=== PATIENT | male | born 1960 | race Two or more races ===

== ENCOUNTER 2021-12-19 11:19 | Inpatient (IN) | payer MEDICAID, OTHER ==
[~2021-12-19] VITALS: Ht 182.9 cm; Wt 86.6 kg
[2021-12-19] MEDS ORDERED: cefTRIAXone 1GM/50ML D5W 50 ML IV ONE (13:00)
[2021-12-19] MEDS ORDERED: SODIUM CHLORIDE 0.9% 1,000 ML IV ONE ×2 (13:00)
[2021-12-19 14:09] LABS: Basophils # (auto) 0.1 10 ^3/uL (0-0.2); Basophils % (auto) 0.2 % (0.0-2.0); Eosinophils # (auto) 0 10 ^3/uL (0-0.8); Hematocrit 43.7 % (41.0-53.0); Hemoglobin 14.1 g/dL (13.5-17.5); Lymphocytes % (auto) 3.8 % (10.0-50.0); Mean Corpuscular Hemoglobin 31.6 pg (28.0-32.0); Mean Corpuscular Hgb Conc. 32.2 g/dL (32.0-36.0); Mean Corpuscular Volume 98.1 fL (80.0-100.0); Monocytes # (auto) 1.4 10 ^3/uL (0-1.3); Monocytes % (auto) 5.4 % (0.0-12.0); Neutrophils # (auto) 24.2 10 ^3/uL (1.6-8.6); Neutrophils % (auto) 90.6 % (37.0-80.0); Nucleated Red Blood Cells % 0.1 %; Red Blood Cells 4.45 10^6/uL (4.5-5.90); White Blood Cell 26.8 10^3/uL (4.4-10.8)
[2021-12-19 14:31] LABS: Albumin 3.1 g/dL (3.4-5.0); Calcium 9.5 mg/dL (8.5-10.1)
[2021-12-19 14:32] LABS: Lactic Acid w/Reflex 2.2 mmol/L (0.4-2.0)
[2021-12-19 14:34] LABS: Bilirubin, Total 0.6 mg/dL (0.2-1.0); Total Protein 6.8 g/dL (6.4-8.2)
[2021-12-19 14:39] LABS: Partial Thromboplastin Time 25.4 sec (24.6-33.4)
[2021-12-19 15:00] LABS: BUN/Creatinine Ratio 8.1
[2021-12-19 15:02] LABS: Potassium 5.9 mmol/L (3.5-5.1)
[2021-12-19] MEDS ORDERED: SODIUM ZIRCONIUM CYCL 10 GM PAK PO ONE (15:15)
[2021-12-19] MEDS ORDERED: SODIUM BICARBONATE 8.4% INJ 50ML SYRINGE IV ONE (15:15)
[2021-12-19] MEDS ORDERED: DEXTROSE (50%) 50ML SYRG IV ONE (15:15)
[2021-12-19] MEDS ORDERED: CALCIUM GLUC 1,000mg/50ml-NS 50 ML IV ONE (15:15)
[2021-12-19] MEDS ORDERED: ALBUTEROL SULF 2.5 MG/0.5ML(0.5%) NEB SOLN NEB ONE (15:15)
[2021-12-19] MEDS ORDERED: FUROSEMIDE 20 MG/2 ML VIAL IV ONE (15:15)
[2021-12-19] MEDS ORDERED: InsuLIN REG 1unit/0.01ml Soln (100units/ml) IV ONE (15:15)
[2021-12-19] MEDS ORDERED: MORPHINE SULFATE INJ 2 MG/ml SYRG IV PRN (17:00)
[2021-12-19] MEDS ORDERED: NITROGLYCERIN 0.4 MG SL TAB SL PRN (17:00)
[2021-12-19] MEDS ORDERED: HEPARIN 1,000 UNITS/ml 1ML VIAL IV ONE (17:30)
[2021-12-19] MEDS ORDERED: SODIUM BICARBONATE 50ML VIAL 50 ML in SOD CHL 0.45% 1,000 ML IV SCH ×2 (17:30→17:45)
[2021-12-19 20:22] LABS: Potassium 5.1 mmol/L (3.5-5.1)
[2021-12-19 20:30] LABS: BUN/Creatinine Ratio 9.3
[2021-12-19 20:45] LABS: Cholesterol 109 mg/dL (< 200)
[2021-12-19 20:47] LABS: HDL Cholesterol 17 mg/dL (40-59); LDL Cholesterol 65 mg/dL (< 100); Triglycerides 275 mg/dL (< 150)
[2021-12-19] MEDS ORDERED: CATHFLO ACTIVASE (ALTEPLASE) 2 MG VIAL IV ONE (21:30)
[2021-12-19] MEDS ORDERED: CATHFLO ACTIVASE (ALTEPLASE) 2 MG VIAL ONE (21:35)
[2021-12-19] MEDS ORDERED: SODIUM CHLORIDE LOCK 20 ML ONE (21:50)
[2021-12-19] MEDS ORDERED: SODIUM CHLOR 0.9% PF (SALINE LOCK) 10ML VIAL/SYR IV ONE (22:00)
[2021-12-20 01:31] LABS: Anion Gap 20 (5-15); Carbon Dioxide 14 mmol/L (21-32); Chloride 118 mmol/L (98-107); Glucose 94 mg/dL (74-106); Potassium 5.2 mmol/L (3.5-5.1); Sodium 152 mmol/L (136-145)
[2021-12-20 02:07] LABS: BUN/Creatinine Ratio 8.8; GFR African American 3 mL/min; GFR Non-African American 2 mL/min
[2021-12-20 02:08] LABS: Blood Urea Nitrogen 189 mg/dL (7-18)
[2021-12-20 05:58] LABS: Basophils # (auto) 0 10 ^3/uL (0-0.2); Basophils % (auto) 0.2 % (0.0-2.0); Eosinophils # (auto) 0 10 ^3/uL (0-0.8); Hemoglobin 14.5 g/dL (13.5-17.5); Lymphocytes # (auto) 1.9 10 ^3/uL (0.4-5.4); Lymphocytes % (auto) 7.8 % (10.0-50.0); Monocytes # (auto) 1.3 10 ^3/uL (0-1.3); Monocytes % (auto) 5.4 % (0.0-12.0); Neutrophils # (auto) 21.2 10 ^3/uL (1.6-8.6); Neutrophils % (auto) 86.6 % (37.0-80.0); Nucleated Red Blood Cells % 0.2 %; Red Blood Cells 4.54 10^6/uL (4.5-5.90); Red Cell Distribution Width 15.6 % (11.8-14.3); White Blood Cell 24.4 10^3/uL (4.4-10.8)
[2021-12-20 06:16] LABS: Calcium 9.5 mg/dL (8.5-10.1)
[2021-12-20 06:24] LABS: BUN/Creatinine Ratio 9.7
[2021-12-20] MEDS ORDERED: SODIUM CHL 0.9% 1000 ML BAG XX ONE (10:30)
[2021-12-20 12:44] LABS: Calcium 8.9 mg/dL (8.5-10.1); Potassium 3.2 mmol/L (3.5-5.1)
[2021-12-20] MEDS: SODIUM BICARBONATE 50ML VIAL 50 ML in D5W 5% 1,000 ML IV SCH ×2 (14:00→23:27)
[2021-12-20] MEDS ORDERED: ADENOSINE 6 MG/2 ML INJ IV ONE ×3 (15:03→16:00)
[2021-12-20] MEDS ORDERED: dilTIAZem HCL 50 MG/10 ML VIAL IV ONE (15:28)
[2021-12-20] MEDS ORDERED: dilTIAZem 125mg/125ml BAG KIT 125 ML IV ONE (15:32)
[2021-12-20] MEDS: dilTIAZem 125mg/125ml BAG KIT 100 ML IV SCH (15:45)
[2021-12-20] MEDS ORDERED: dilTIAZem 25 MG/5 ML VIAL IV ONE (16:00)
[2021-12-20] MEDS ORDERED: POTASSIUM EFFERVESENT TAB 25 MEQ PO ONE (16:00)
[2021-12-20] MEDS ORDERED: AMIODARONE HCL 200 MG TAB PO ONE (17:15)
[2021-12-20 19:43] LABS: Basophils # (auto) 0.1 10 ^3/uL (0-0.2); Basophils % (auto) 0.2 % (0.0-2.0); Eosinophils # (auto) 0 10 ^3/uL (0-0.8); Eosinophils % (auto) 0.1 % (0.0-7.0); Hematocrit 41.2 % (41.0-53.0); Hemoglobin 13.3 g/dL (13.5-17.5); Lymphocytes # (auto) 1.9 10 ^3/uL (0.4-5.4); Lymphocytes % (auto) 6.8 % (10.0-50.0); Mean Corpuscular Hemoglobin 30.6 pg (28.0-32.0); Mean Corpuscular Hgb Conc. 32.3 g/dL (32.0-36.0); Mean Corpuscular Volume 94.7 fL (80.0-100.0); Monocytes # (auto) 1.4 10 ^3/uL (0-1.3); Monocytes % (auto) 5.1 % (0.0-12.0); Neutrophils % (auto) 87.8 % (37.0-80.0); Nucleated Red Blood Cells % 0.2 %; Red Blood Cells 4.35 10^6/uL (4.5-5.90); Red Cell Distribution Width 14.6 % (11.8-14.3); White Blood Cell 27.3 10^3/uL (4.4-10.8)
[2021-12-20 20:02] LABS: BUN/Creatinine Ratio 10.2; Calcium 8.3 mg/dL (8.5-10.1); Potassium 3.4 mmol/L (3.5-5.1)
[2021-12-20] MEDS ORDERED: AMIODARONE HCL 200 MG TAB PO SCH (22:00)
[2021-12-20] MEDS: METOPROLOL TARTRATE 25 MG TAB PO SCH ×2 (22:00→22:47)
[2021-12-20] MEDS ORDERED: METOPROLOL TARTRATE 25 MG TAB PO SCH (22:00)
[2021-12-20] MEDS: ATORVASTATIN 20 MG TAB PO SCH ×2 (22:00→22:45)
[2021-12-20] MEDS: HEPARIN SODIUM (PORCINE) 5000 UNITS/ML 1ML VIAL SC SCH (23:08)
[2021-12-21 06:06] LABS: BUN/Creatinine Ratio 11.8; Calcium 8.4 mg/dL (8.5-10.1); Magnesium 2.5 mg/dL (1.6-2.6)
[2021-12-21] MEDS ORDERED: SODIUM CHL 0.9% 1000 ML BAG XX ONE (07:00)
[2021-12-21] MEDS: SODIUM BICARBONATE 50ML VIAL 50 ML in D5W 5% 1,000 ML IV SCH (07:52)
[2021-12-21] MEDS: SOD CHL 0.45% 1,000 ML IV SCH (08:45)
[2021-12-21] MEDS: POTASSIUM CHL 20MEQ/100ML 100 ML IV SCH ×2 (08:45→10:45)
[2021-12-21] MEDS: ASPirin 81 mg TAB PO SCH (10:00)
[2021-12-21] MEDS ORDERED: POTASSIUM CHL 20MEQ/100ML 100 ML IV SCH (10:00)
[2021-12-21] MEDS: HEPARIN SODIUM (PORCINE) 5000 UNITS/ML 1ML VIAL SC SCH ×2 (10:00→22:00)
[2021-12-21] MEDS: METOPROLOL TARTRATE 25 MG TAB PO SCH ×2 (10:00→22:00)
[2021-12-21] MEDS: NOREPINEPHRINE 8 MG/250ML KIT 250 ML IV SCH (10:04)
[2021-12-21] MEDS: dilTIAZem 125mg/125ml BAG KIT 100 ML IV SCH (11:45)
[2021-12-21] MEDS: PANTOPRAZOLE 40 MG/10 ML VIAL INJ IV SCH (22:24)
[2021-12-21] MEDS: ATORVASTATIN 20 MG TAB PO SCH (22:24)
[2021-12-22 00:19] LABS: Hematocrit 38.9 % (41.0-53.0); Hemoglobin 12.7 g/dL (13.5-17.5); Mean Corpuscular Hgb Conc. 32.8 g/dL (32.0-36.0); Mean Corpuscular Volume 97.6 fL (80.0-100.0); Red Blood Cells 3.98 10^6/uL (4.5-5.90); White Blood Cell 25.2 10^3/uL (4.4-10.8)
[2021-12-22 00:27] LABS: Basophils % (manual) 0 (0.0-2.0); Blast Cells 0; Eosinophils % (manual) 0 (0-7); Metamyelocytes % 0; Myelocytes % 0; Promyelocytes % 0; Reactive Lymphocytes 0
[2021-12-22 00:34] LABS: Albumin 2.4 g/dL (3.4-5.0); BUN/Creatinine Ratio 13.7; Calcium 8.4 mg/dL (8.5-10.1); Potassium 3.5 mmol/L (3.5-5.1)
[2021-12-22 00:37] LABS: Bilirubin, Total 0.6 mg/dL (0.2-1.0)
[2021-12-22] MEDS: METOPROLOL TARTRATE 25 MG TAB PO SCH ×3 (00:52→22:57)
[2021-12-22 00:59] LABS: Band Neutrophils % (manual) 3; Lymphocytes % (manual) 8 (10.0-50.0); Monocytes % (manual) 4 (0-12)
[2021-12-22 05:37] LABS: Basophils # (auto) 0 10 ^3/uL (0-0.2); Basophils % (auto) 0.1 % (0.0-2.0); Eosinophils # (auto) 0.1 10 ^3/uL (0-0.8); Eosinophils % (auto) 0.6 % (0.0-7.0); Hematocrit 34.4 % (41.0-53.0); Hemoglobin 11.3 g/dL (13.5-17.5); Lymphocytes # (auto) 2.7 10 ^3/uL (0.4-5.4); Lymphocytes % (auto) 11.6 % (10.0-50.0); Mean Corpuscular Hemoglobin 31.4 pg (28.0-32.0); Mean Corpuscular Hgb Conc. 32.9 g/dL (32.0-36.0); Mean Corpuscular Volume 95.2 fL (80.0-100.0); Monocytes # (auto) 1.5 10 ^3/uL (0-1.3); Monocytes % (auto) 6.2 % (0.0-12.0); Neutrophils # (auto) 19.3 10 ^3/uL (1.6-8.6); Neutrophils % (auto) 81.5 % (37.0-80.0); Nucleated Red Blood Cells % 0.1 %; Red Blood Cells 3.61 10^6/uL (4.5-5.90); Red Cell Distribution Width 14.2 % (11.8-14.3); White Blood Cell 23.7 10^3/uL (4.4-10.8)
[2021-12-22] MEDS: SOD CHL 0.45% 1,000 ML IV SCH ×2 (05:42→14:45)
[2021-12-22 05:51] LABS: BUN/Creatinine Ratio 16.2; Potassium 3.6 mmol/L (3.5-5.1)
[2021-12-22] MEDS: ASPirin 81 mg TAB PO SCH (09:49)
[2021-12-22] MEDS: PANTOPRAZOLE 40 MG/10 ML VIAL INJ IV SCH ×2 (09:49→22:56)
[2021-12-22] MEDS: HEPARIN SODIUM (PORCINE) 5000 UNITS/ML 1ML VIAL SC SCH ×2 (09:53→22:57)
[2021-12-22] MEDS: NOREPINEPHRINE 8 MG/250ML KIT 250 ML IV SCH (10:00)
[2021-12-22 13:24] LABS: Hepatitis C Antibody Negative (Negative)
[2021-12-22] MEDS: ATORVASTATIN 20 MG TAB PO SCH (22:57)
[2021-12-23] MEDS: SOD CHL 0.45% 1,000 ML IV SCH (01:45)
[2021-12-23 01:59] VITALS: BP 148/84
[2021-12-23 05:00] VITALS: BP 148/84
[2021-12-23 05:45] LABS: Basophils # (auto) 0 10 ^3/uL (0-0.2); Basophils % (auto) 0.2 % (0.0-2.0); Eosinophils # (auto) 0.2 10 ^3/uL (0-0.8); Eosinophils % (auto) 1.4 % (0.0-7.0); Hematocrit 35.6 % (41.0-53.0); Hemoglobin 11.9 g/dL (13.5-17.5); Lymphocytes # (auto) 1.5 10 ^3/uL (0.4-5.4); Lymphocytes % (auto) 10.1 % (10.0-50.0); Mean Corpuscular Hemoglobin 32.2 pg (28.0-32.0); Mean Corpuscular Hgb Conc. 33.5 g/dL (32.0-36.0); Mean Corpuscular Volume 96.2 fL (80.0-100.0); Monocytes % (auto) 6.8 % (0.0-12.0); Neutrophils # (auto) 11.7 10 ^3/uL (1.6-8.6); Neutrophils % (auto) 81.5 % (37.0-80.0); White Blood Cell 14.4 10^3/uL (4.4-10.8)
[2021-12-23 05:51] LABS: BUN/Creatinine Ratio 34.3; Calcium 8.1 mg/dL (8.5-10.1); Potassium 3.3 mmol/L (3.5-5.1)
[2021-12-23 08:52] VITALS: BP 180/80
[2021-12-23] MEDS ORDERED: POTASSIUM CHL 20 Meq TABLET PO ONE (09:00)
[2021-12-23] MEDS ORDERED: LACTULOSE 20Gm/30ML SOLN PO PRN (09:30)
[2021-12-23] MEDS: METOPROLOL TARTRATE 25 MG TAB PO SCH ×2 (09:56→22:12)
[2021-12-23] MEDS: ASPirin 81 mg TAB PO SCH (09:56)
[2021-12-23] MEDS: PANTOPRAZOLE 40 MG/10 ML VIAL INJ IV SCH (09:57)
[2021-12-23] MEDS: HEPARIN SODIUM (PORCINE) 5000 UNITS/ML 1ML VIAL SC SCH ×2 (10:52→22:23)
[2021-12-23 12:39] VITALS: BP 148/74
[2021-12-23 12:57] LABS: Urine Bacteria NONE SEEN /hpf (None Seen); Urine Blood 2+ /uL (Negative); Urine Specific Gravity 1.015 (1.001-1.035); Urine WBC 5 /hpf (0 - 3)
[2021-12-23 16:22] VITALS: BP 150/80
[2021-12-23] MEDS: ATORVASTATIN 20 MG TAB PO SCH (22:11)
[2021-12-23 22:13] VITALS: BP 164/87
[2021-12-24] MEDS: HYDROcodone-ACET 5/325MG TAB PO PRN ×2 (00:22→20:40)
[2021-12-24] MEDS: SOD CHL 0.45% 1,000 ML IV SCH ×2 (03:25→16:45)
[2021-12-24 04:33] VITALS: BP 155/70
[2021-12-24 06:51] LABS: Calcium 7.9 mg/dL (8.5-10.1); Potassium 3.6 mmol/L (3.5-5.1)
[2021-12-24 09:00] VITALS: BP 155/77
[2021-12-24] MEDS: METOPROLOL TARTRATE 25 MG TAB PO SCH ×2 (10:00→22:25)
[2021-12-24] MEDS: ASPirin 81 mg TAB PO SCH (10:01)
[2021-12-24] MEDS: PANTOPRAZOLE 40 MG TAB PO SCH (10:02)
[2021-12-24] MEDS: HEPARIN SODIUM (PORCINE) 5000 UNITS/ML 1ML VIAL SC SCH ×2 (10:15→22:00)
[2021-12-24 13:00] VITALS: BP 150/67
[2021-12-24 17:00] VITALS: BP 153/81
[2021-12-24] MEDS: amLODIPine BESYLATE 5 MG TAB PO SCH (17:33)
[2021-12-24 21:16] LABS: Hematocrit 34.7 % (41.0-53.0); Hemoglobin 11.2 g/dL (13.5-17.5); Mean Corpuscular Hemoglobin 31.1 pg (28.0-32.0); Mean Corpuscular Hgb Conc. 32.2 g/dL (32.0-36.0); Mean Corpuscular Volume 96.5 fL (80.0-100.0); Red Cell Distribution Width 14.4 % (11.8-14.3); White Blood Cell 13.4 10^3/uL (4.4-10.8)
[2021-12-24 21:39] LABS: Basophils % (manual) 0 (0.0-2.0); Blast Cells 0; Metamyelocytes % 0; Promyelocytes % 0; Reactive Lymphocytes 0
[2021-12-24 22:00] VITALS: BP 125/75
[2021-12-24] MEDS: ATORVASTATIN 20 MG TAB PO SCH (22:23)
[2021-12-24 22:40] LABS: Band Neutrophils % (manual) 3; Lymphocytes % (manual) 13 (10.0-50.0); Monocytes % (manual) 7 (0-12)
[2021-12-24 22:41] LABS: Eosinophils % (manual) 3 (0-7); Myelocytes % 1
[2021-12-25 05:00] VITALS: BP 144/72
[2021-12-25] MEDS: SOD CHL 0.45% 1,000 ML IV SCH ×2 (06:00→19:25)
[2021-12-25 06:57] LABS: Basophils # (auto) 0.1 10 ^3/uL (0-0.2); Basophils % (auto) 0.5 % (0.0-2.0); Eosinophils # (auto) 0.4 10 ^3/uL (0-0.8); Eosinophils % (auto) 3.1 % (0.0-7.0); Hematocrit 30.9 % (41.0-53.0); Hemoglobin 10.2 g/dL (13.5-17.5); Lymphocytes # (auto) 2.3 10 ^3/uL (0.4-5.4); Lymphocytes % (auto) 17.9 % (10.0-50.0); Mean Corpuscular Hemoglobin 31.3 pg (28.0-32.0); Mean Corpuscular Hgb Conc. 33.1 g/dL (32.0-36.0); Mean Corpuscular Volume 94.5 fL (80.0-100.0); Monocytes # (auto) 1.7 10 ^3/uL (0-1.3); Monocytes % (auto) 13.5 % (0.0-12.0); Neutrophils # (auto) 8.2 10 ^3/uL (1.6-8.6); Nucleated Red Blood Cells % 0.1 %; Red Blood Cells 3.27 10^6/uL (4.5-5.90); Red Cell Distribution Width 13.7 % (11.8-14.3); White Blood Cell 12.6 10^3/uL (4.4-10.8)
[2021-12-25 08:20] VITALS: BP 145/81
[2021-12-25] MEDS: HYDROcodone-ACET 5/325MG TAB PO PRN ×2 (08:41→18:12)
[2021-12-25] MEDS: HEPARIN SODIUM (PORCINE) 5000 UNITS/ML 1ML VIAL SC SCH ×2 (10:00→22:00)
[2021-12-25] MEDS: ASPirin 81 mg TAB PO SCH (10:13)
[2021-12-25] MEDS: METOPROLOL TARTRATE 25 MG TAB PO SCH ×2 (10:14→22:00)
[2021-12-25] MEDS: PANTOPRAZOLE 40 MG TAB PO SCH (10:14)
[2021-12-25 12:30] VITALS: BP 107/73
[2021-12-25 17:12] VITALS: BP 128/69
[2021-12-25] MEDS: amLODIPine BESYLATE 5 MG TAB PO SCH (18:12)
[2021-12-25] MEDS ORDERED: TEMAZEPAM 15 MG CAP PO PRN (19:45)
[2021-12-25 22:00] VITALS: BP 120/54
[2021-12-25] MEDS: ATORVASTATIN 20 MG TAB PO SCH (22:09)
[2021-12-26 05:00] VITALS: BP 135/85
[2021-12-26 06:03] LABS: BUN/Creatinine Ratio 22.2; Calcium 7.5 mg/dL (8.5-10.1); Potassium 3.5 mmol/L (3.5-5.1)
[2021-12-26 06:19] LABS: Basophils # (auto) 0.1 10 ^3/uL (0-0.2); Basophils % (auto) 0.4 % (0.0-2.0); Eosinophils # (auto) 0.4 10 ^3/uL (0-0.8); Eosinophils % (auto) 3.8 % (0.0-7.0); Hematocrit 29.7 % (41.0-53.0); Hemoglobin 10.1 g/dL (13.5-17.5); Lymphocytes # (auto) 2.3 10 ^3/uL (0.4-5.4); Mean Corpuscular Hemoglobin 32.1 pg (28.0-32.0); Mean Corpuscular Volume 94.6 fL (80.0-100.0); Monocytes # (auto) 1.4 10 ^3/uL (0-1.3); Neutrophils # (auto) 7.5 10 ^3/uL (1.6-8.6); Neutrophils % (auto) 63.8 % (37.0-80.0); Red Blood Cells 3.14 10^6/uL (4.5-5.90); Red Cell Distribution Width 13.4 % (11.8-14.3); White Blood Cell 11.7 10^3/uL (4.4-10.8)
[2021-12-26 09:00] VITALS: BP 146/83
[2021-12-26] MEDS ORDERED: GOLYTELY 4L KIT PO ONE (09:00)
[2021-12-26] MEDS: HEPARIN SODIUM (PORCINE) 5000 UNITS/ML 1ML VIAL SC SCH (10:00)
[2021-12-26] MEDS: ASPirin 81 mg TAB PO SCH (10:05)
[2021-12-26] MEDS: METOPROLOL TARTRATE 25 MG TAB PO SCH ×2 (10:06→22:00)
[2021-12-26] MEDS: PANTOPRAZOLE 40 MG TAB PO SCH (10:06)
[2021-12-26] MEDS ORDERED: POTASSIUM EFFERVESENT TAB 25 MEQ PO ONE (12:00)
[2021-12-26] MEDS ORDERED: POTASSIUM CHLORIDE 40 MEQ in SOD CHL 0.45% 1,000 ML IV SCH (12:15)
[2021-12-26 13:00] VITALS: BP 145/79
[2021-12-26] MEDS ORDERED: POTASSIUM PHOSPHATE 44 MEQ in D5W 5% 250 ML IV ONE (16:00)
[2021-12-26] MEDS: SOD CHL 0.45% 1,000 ML IV SCH (16:00)
[2021-12-26] MEDS: amLODIPine BESYLATE 5 MG TAB PO SCH (18:09)
[2021-12-26] MEDS: ATORVASTATIN 20 MG TAB PO SCH (22:00)
[2021-12-26 22:06] VITALS: BP 127/66
[2021-12-27 04:29] LABS: Hematocrit 28.6 % (41.0-53.0); Hemoglobin 9.8 g/dL (13.5-17.5)
[2021-12-27 04:33] VITALS: BP 121/64
[2021-12-27 04:41] LABS: BUN/Creatinine Ratio 11.5; Potassium 3.9 mmol/L (3.5-5.1)
[2021-12-27 04:42] LABS: Calcium 7.2 mg/dL (8.5-10.1)
[2021-12-27 07:09] LABS: INR 1.03 (0.9-1.15); Partial Thromboplastin Time 25.6 sec (24.6-33.4)
[2021-12-27] MEDS ORDERED: SODIUM CHLORIDE LOCK 10 ML ONE (08:19)
[2021-12-27] MEDS ORDERED: LIDOCAINE VISCOUS 2% 15ML UD ONE (08:19)
[2021-12-27] MEDS ORDERED: diphenhdrAMINE HCL 50 MG/1 ML VL ONE ×2 (08:20→09:25)
[2021-12-27] MEDS ORDERED: NALOXONE HCL 0.4 MG/ML VIAL ONE (08:28)
[2021-12-27] MEDS ORDERED: FLUMAZENIL 0.1 MG/ML INJ 10ML MDV IV ONE (08:28)
[2021-12-27] MEDS ORDERED: EPINEPHrine HCL 1 MG/10 ML SYRG ONE (08:29)
[2021-12-27] MEDS: SOD CHL 0.45% 1,000 ML IV SCH (08:40)
[2021-12-27 08:45] VITALS: BP 145/66
[2021-12-27] MEDS: fentaNYL CITRATE 100 MCG/2 ML VL ONE ×5 (09:20→09:36)
[2021-12-27] MEDS: MIDAZOLAM HCL 5 MG/ML-1ML VIAL ONE ×5 (09:20→09:36)
[2021-12-27] MEDS: PANTOPRAZOLE 40 MG TAB PO SCH (10:45)
[2021-12-27] MEDS: METOPROLOL TARTRATE 25 MG TAB PO SCH (10:45)
[2021-12-27] MEDS ORDERED: MET25T PO (12:38)
[2021-12-27] MEDS ORDERED: AML5T PO (12:38)
[2021-12-27] MEDS ORDERED: PANT40T PO (12:38)
[2021-12-27] MEDS ORDERED: LEVO-28 PO (12:38)
[2021-12-27] MEDS ORDERED: ATOR20TA50 PO (12:38)
[2021-12-27] MEDS ORDERED: METR500T PO (12:38)
[2021-12-27 13:00] VITALS: BP 138/87
== END 2021-12-27 16:08 | disposition hospice, home (50) | DRG 469 ==
LOC: EDSEX 11:19 → EDBD 11:19 → ER 11:19 → OVERFLOW 16:49 → TELE-WESTW 12-22 23:24
PROVIDERS: ADMIT Registered Nurse; ATTEND Hospitalist
PROC: 5A1D70Z Performance of Urinary Filtration, Intermittent, Less than 6 Hours Per Day (ICD-10-PCS; principal; 2021-12-19)
PROC: 5A1D70Z Performance of Urinary Filtration, Intermittent, Less than 6 Hours Per Day (ICD-10-PCS; 2021-12-20)
PROC: 5A1D70Z Performance of Urinary Filtration, Intermittent, Less than 6 Hours Per Day (ICD-10-PCS; 2021-12-21)
PROC: 0DJ08ZZ Inspection of Upper Intestinal Tract, Via Natural or Artificial Opening Endoscopic (ICD-10-PCS; 2021-12-27)
PROC: 0DBG8ZX Excision of Left Large Intestine, Via Natural or Artificial Opening Endoscopic, Diagnostic (ICD-10-PCS; 2021-12-27)
DX: N17.9 Acute kidney failure, unspecified (principal); R65.11 Systemic inflammatory response syndrome (SIRS) of non-infectious origin with acute organ dysfunction; G93.41 Metabolic encephalopathy; K63.3 Ulcer of intestine; E44.1 Mild protein-calorie malnutrition; E87.0 Hyperosmolality and hypernatremia; I12.0 Hypertensive chronic kidney disease with stage 5 chronic kidney disease or end stage renal disease; E87.2 Acidosis; I47.1 Supraventricular tachycardia; N18.6 End stage renal disease; E87.5 Hyperkalemia; E87.6 Hypokalemia; E78.5 Hyperlipidemia, unspecified; K44.9 Diaphragmatic hernia without obstruction or gangrene; K52.9 Noninfective gastroenteritis and colitis, unspecified; K57.30 Diverticulosis of large intestine without perforation or abscess without bleeding; K29.70 Gastritis, unspecified, without bleeding; Z99.2 Dependence on renal dialysis; Z68.1 Body mass index [BMI] 19.9 or less, adult
CPT/HCPCS: 36415; 36556; 43235; 45380; 70450; 70551; 71045; 76705; 76775; 80048; 80053; 80061; 81001; 82140; 82270; 82306; 82962; 83036; 83605; 83735; 83880; 83970; 84100; 84132; 84443; 84484; 85007; 85014; 85018; 85025; 85027; 85610; 85730; 86803; 86850; 86900; 86901; 87040; 87340; 90935; 93005; 93306; 93886; 94644; 95819; 96365; 96367; 96375; 97110; 97116; 97530; 99291; C9113; G0378; J0153; J0696; J1642; J1815; J2250; J3480; J7060